=== PATIENT | male | born 1965 | race Caucasian/White ===

== ENCOUNTER → 2025-02-05 13:12 | Outpatient (CLI) | payer SELFPAY | LOC: LAB 13:16 | DX: Z13.9 Encounter for screening, unspecified (principal) | CPT/HCPCS: 36415; 99001 ==

== ENCOUNTER → 2025-09-03 11:26 | Outpatient (CLI) | payer OTHER, SELFPAY ==
[2025-09-03 13:21] LABS: COVID-19 CEPHEID 4-PLEX PCR POSITIVE (Negative); Influenza A - CEPHEID Flu A NEGATIVE (NEGATIVE); Influenza B - CEPHEID Flu B NEGATIVE (NEGATIVE)
== END ==
PROVIDERS: Visit Provider Nurse Practitioner Family
DX: R05.9 Cough, unspecified (principal); R50.9 Fever, unspecified
CPT/HCPCS: 87637